=== PATIENT | male | born 1955 | race African-American/Black ===

== ENCOUNTER 2018-12-14 20:56 | Emergency (ER) | payer OTHER ==
[~2018-12-14] VITALS: Ht 172.7 cm; Wt 68.0 kg
[2018-12-14 20:56] VITALS: BP_SYST 154
[2018-12-14 21:57] VITALS: BP_SYST 138
== END 2018-12-14 21:57 ==
LOC: SED 20:56
DX: Z02.89 Encounter for other administrative examinations (principal); I10 Essential (primary) hypertension; F17.200 Nicotine dependence, unspecified, uncomplicated
CPT/HCPCS: 99283